=== PATIENT | male | born 1975 | race Caucasian/White ===

== ENCOUNTER 2018-01-06 15:23 | Emergency (ER) | payer SELFPAY ==
[~2018-01-06] VITALS: Ht 170.2 cm; Wt 72.6 kg
[~2018-01-06 15:23] MED LIST: ALBU90OI INH; ALBU90OI6 INH; ASPI81CH PO; ASPI81EC PO; AZIT250 PO; CALC1.25T PO; CLON1 PO; ETOD200 PO; ETOD400 PO; FORM12IH IH; Flomax0.4 MG PO; GABA100 PO; GLIP2.5ER PO; GLIP5 PO; GLIP5ER PO; HYDACE5 PO; HYDCHL12.5 PO; LISI10 PO; METF500 PO; METF500C PO; MOME220I IH; NAPR250 PO; OMEP10ER; OMEP20ER PO; PRED20 PO; SIMV10 PO; TIOT18 IH
[2018-01-06] MEDS ORDERED: Keppra750 MG PO (15:30)
[2018-01-06] MEDS ORDERED: CYCL10 PO ×2 (15:30→16:01)
[2018-01-06] MEDS ORDERED: Naprosyn500 MG PO (16:01)
== END 2018-01-06 16:24 | disposition home or self-care (01) ==
LOC: ER 15:23
DX: M25.512 Pain in left shoulder (principal); R56.9 Unspecified convulsions; Z79.899 Other long term (current) drug therapy
CPT/HCPCS: 99282